=== PATIENT | female | born 1955 | race Caucasian/White ===

== ENCOUNTER → 2017-01-22 | Outpatient (CLI) | payer OTHER | LOC: CAT 14:28 | DX: Z13.6 Encounter for screening for cardiovascular disorders (principal) ==

== ENCOUNTER → 2017-09-11 | Outpatient (CLI) | payer BC | LOC: RAD 09-04 03:02 | DX: N64.4 Mastodynia (principal); R92.8 Other abnormal and inconclusive findings on diagnostic imaging of breast ==

== ENCOUNTER → 2018-10-14 | Outpatient (CLI) | payer OTHER | LOC: RAD 01:23 | DX: Z12.31 Encounter for screening mammogram for malignant neoplasm of breast (principal) ==

== ENCOUNTER 2019-08-05 17:25 | Inpatient (IN) | payer OTHER ==
[~2019-08-05] VITALS: Ht 170.2 cm; Wt 68.0 kg
--- NOTE | ~2019-08-05 | EKG ---
[facility] [place] [address] [place] [address] ELECTROCARDIOGRAM REPORT Name: ALICE TRACY Room #: 207-P ADM IN M.R.#: [id number] Admission: 08/05/19 Attend Phys: Eldon Lyons MD, Discharge: Date of : 57 Report #: [id number] THIS REPORT FOR: cc: Sonya Fontaine MD, Lisa A. MD Epiphany, Epiphany MD ~ THIS REPORT FOR: //name// [facility] Test Date: 2019-08-06 Test Time: 07:18:27 Pat Name: ALICE TRACY Department: Room: 207 P Gender: F Dialysis Registered Nurse: KENNETH : [id number] Requested By: Eldon Lyons Order Number: [id number] MD: Measurements Intervals [place] Rate: 72 P: 65 MI: 178 QRS: 54 QRSD: 97 T: 168 QT: 476 QTc: 522 Interpretive Statements Sinus rhythm Probable left atrial enlargement Borderline low voltage, extremity leads Abnrm T, consider ischemia, anterolateral lds Prolonged QT interval No previous ECG available for comparison [email or web address] By: 0718 7 Epiphany Epiphany, [place] /EPI
[2019-08-05 18:00] VITALS: BP 133/87
--- NOTE | 2019-08-05 18:23 | NUR ---
PT CARE ASSUMED APPROX 1750. PT DENIES PAIN AND SOA. VSS. UP WITH STEADY GAIT. POC INITIATED. PT DENIES QUESTIONS OR CONCERNS REGARDING POC. CXR COMPLETED. PT RESTING COMFORTABLY WITHOUT NOTED DISTRESS.
[2019-08-05 19:07] LABS: ABSOLUTE NEUTROPHILS 5.8 thou/uL (1.4-8.2); BASOPHILS 0.5 % (0.0-2.0); EOSINOPHILS 1.4 % (0.0-3.0); HEMOGLOBIN 13.8 gm/dL (12.0-15.0); LYMPHOCYTES 24.3 % (24.0-44.0); MCH 30.7 pg (26.0-34.0); MCHC 32.8 g/dL (28.0-37.0); MCV 93.5 fL (80.0-100.0); MONOCYTES 6.7 % (1.0-8.0); PLATELET COUNT 249 thou/uL (150-400); POLYS 67.1 % (36.0-66.0); RBC 4.49 mil/uL (4.20-5.00); RDW 12.8 % (10.5-14.5); WBC 8.6 thou/uL (4.0-11.0)
[2019-08-05 19:29] LABS: ALBUMIN 3.6 g/dL (3.4-5.0); CALCIUM 9.5 mg/dL (8.5-10.1); CREATININE 0.7 mg/dL (0.6-1.0); TOTAL BILIRUBIN 0.3 mg/dL (<0.1-1.0); TOTAL PROTEIN 7.2 g/dL (6.4-8.2)
[2019-08-05 19:32] LABS: TROPONIN-I 2.44 ng/mL (<0.06)
[2019-08-05 20:30] VITALS: BP 127/77
[2019-08-05 23:57] VITALS: BP 119/72
[2019-08-06] VITALS (15 sets, daily range): BP systolic 15–126; BP diastolic 45–73
--- NOTE | 2019-08-06 01:48 | NUR ---
PT WAS A NEW ADMIT ON CCU ABUT 1800. PT ALERT AND ORIENTED. WAS A DIRECT ADMIT FROM DR. BOLAÑOS OFFICE. DR BOLAÑOS ON UNIT DURING ADMISSION TIME. PT REPORTS HAVING CHEST PRESSURES WILL CLEANING HER DRIVE WAY YESTERDAY AND SIMILAR CHESAT PRESSURE DURING HER ROUTINE KICK BOX EXERCISE THE DAY BEFORE YESTERDAY. CURRENTLY PT DENIES CHEST PAIN, OR ANY PRESSURES. INDEPENDENT WITH ALL HER DAILY ACTIVITIES. ADMISSION ASSESSMENTS COMPLETE. CONSENT FOR CARDIAC CATH SIGNED YESTERDAY. PT IS NPO WITHOUT ANY OTHER CONCERNS. WILL CONTINUE TO MONITOR AND FOLLOW POC.
[2019-08-06] MEDS ORDERED: TOPROL XL25 MG PO (09:14)
[2019-08-06] MEDS ORDERED: LISINOPRIL2.5 MG PO (09:14)
--- NOTE | 2019-08-06 18:52 | NUR ---
PT CARE ASSUMED APPROXIMATELY 0700. PT ASSESSMENTS CHARTED. PT MEDICATIONS CHARTED. PT DENIES CHEST PAIN, ONLY SLIGHT DISCOMFORT AT STENT SITE.
[2019-08-06] MEDS ORDERED: ETODOLAC500 MG PO (19:10)
[2019-08-06] MEDS ORDERED: XIIDRA1 EACH OP (19:11)
[2019-08-06] MEDS ORDERED: ZOLPIDEM TARTRA10 MG PO (19:13)
[2019-08-06] MEDS ORDERED: BIOFREEZE118 ML (19:16)
--- NOTE | 2019-08-07 03:29 | NUR ---
PT S/P CARDIAC CATH WITHOUT INTERVENTION. OFF BEDREST. RIGHT GROIN C/D/I. NO C/O PAIN. DR FLOYD CALLED FOR AMBIEN ORDER. ASA DC'D PER DR BOLAÑOS'S ORDER. PT TO DC THIS AM. NO FURTHER CONCERNS.
[2019-08-07 04:01] VITALS: BP 100/58
[2019-08-07 07:34] VITALS: BP 99/48
[2019-08-07 08:35] VITALS: BP 99/48
[2019-08-07 09:04] VITALS: BP 99/48
[2019-08-07 09:15] VITALS: BP 99/48
--- NOTE | 2019-08-07 11:06 | NUR ---
PT CARE ASSUMED APPROXIMATELY 0700. PT ASSESSMENT CHARTED. PT MEDICATIONS CHARTED. PT DENIES PAIN. SPOUSE IS AT THE BEDSIDE. PT IS READY FOR DISCHARGE.
--- NOTE | 2019-08-08 12:57 | CATHLAB ---
[facility] [address] [place] [address] INVASIVE PROCEDURE REPORT Name: ALICE TRACY Room #: 207-P [facility] IN M.R.#: [id number] Admission: 08/05/19 Attend Phys: Eldon Lyons MD, Discharge: 08/07/19 Date of : 57 Report #: [id number] THIS REPORT FOR: cc: Sonya Fontaine MD, Lisa A. MD Mancuso, Gerald M. MD [facility] ~ APPROVED REPORT Study performed: 08/06/2019 07:24:41 Patient Details Patient Status: In-Patient Room #: The patient is a 63 year-old female Event Personnel Eldon Lyons Stack Attendant, Collin George RTR Monitor, Stefania Arroyo RN RN, Estelita Garcia RTR, STUDIO DIRECTOR Scrub Procedures Performed Art Access - R femoral artery* Left Heart Cath w/or w/o Coronaries [id number] [facility] Aortogram Abdominal Peripheral Angio 991675 15880 Initial Mod Sed Same Phys/QHP Gr5y 612265 81297 Mod Sed Same Phys/QHP Ea 754316 Hemostasis w/ Mynx Indication Chest pain Procedure Narrative The Right Groin^ was infiltrated with 1% Lidocaine subcutaneous anesthesia. A PINNACLE 6FR Sheath #[id number] sheath was inserted into the RFA^. Coronary angiography was performed using coronary diagnostic catheters. The right coronary system was accessed and visualized with a JR4 catheter. The left coronary system was accessed and visualized with a JL4 catheter. The left ventricle was accessed and visualized with a Pigtail catheter. Left ventriculogram was performed in 30 degree projection. An aortogram of the abdominal aorta was performed. Pre-demployment femoral angiogram was performed . Closure device was deployed with a Fr MYNXGRIP 6/7F #[id number]. The patient tolerated the procedure well and there were no complications associated with the procedure. There was no hematoma. Intraoperative Conscious Sedation Sedation start time: 7:54 Case end Time: [facility] [address] [email or web address] [address] INVASIVE PROCEDURE REPORT Name: URSZULALAURAALICE Room #: 207-P [facility] IN ..#: [id number] Admission: 08/05/19 Attend Phys: Eldon Lyons, Discharge: 08/07/19 Date of : 57 Report #: [id number] 19:19 Fentanyl 50 mcg Versed 1 mg Fluoro Time: 1.45 minutes Dose: DAP 1622.30 cGycm2 178 mGy Contrast Type and Amount: Omnipaque 55 ml Hemodynamics The aortic pressure is 139/70 mmHg with a mean of 92 mmHg. The left ventricular pressure is 125/4 mmHg with a mean of mmHg. The left ventricular end diastolic pressure is 15 mmHg. Conclusion #1 left ventricle exhibiting anterior apical inferior apical akinesis apical ballooning consistent with a Takatsubo EF 40-45% #2 abdominal aortogram revealing mildly tortuous abdominal aorta no aneurysm. Widely patent iliac system and renal arteries widely patent #3 left main free of disease giving rise to LAD and circumflex #4 LAD with no irregularities extends to the apex. No occlusive disease #5 circumflex system nondominant high rising OM/ramus branch no disease #6 large dominant right coronary artery free of disease Recommendations plan: Continue aggressive risk factor modification. We will treat for cardiomyopathy transient due to the apparent diagnosis ofTakatsubo Patient is hemodynamically stable transfer to CCU. Addition of beta nic afterload reducers <ELECTRONICALLY SIGNED> By: Eldon Lyons MD, FACC 08/08/19 1256 1256 1256 Eldon Lyons MD, FACC /INF
== END 2019-08-07 10:59 | disposition home or self-care (01) | DRG 287 ==
LOC: 2N 17:25
PROVIDERS: ADMIT Internal Medicine Cardiovascular Disease
PROC: B2111ZZ Fluoroscopy of Multiple Coronary Arteries using Low Osmolar Contrast (ICD-10-PCS; principal; 2019-08-06)
PROC: B2151ZZ Fluoroscopy of Left Heart using Low Osmolar Contrast (ICD-10-PCS; principal; 2019-08-06)
PROC: B41F1ZZ Fluoroscopy of Right Lower Extremity Arteries using Low Osmolar Contrast (ICD-10-PCS; principal; 2019-08-06)
PROC: 4A023N7 Measurement of Cardiac Sampling and Pressure, Left Heart, Percutaneous Approach (ICD-10-PCS; principal; 2019-08-06)
DX: I51.81 Takotsubo syndrome (principal); Z79.899 Other long term (current) drug therapy
CPT/HCPCS: 10081

== ENCOUNTER → 2019-08-05 | Outpatient (CLI) | payer OTHER ==
[~2019-08-05] MED LIST: BIOFREEZE118 ML; ETODOLAC500 MG PO; LISINOPRIL2.5 MG PO; TOPROL XL25 MG PO; XIIDRA1 EACH OP; ZOLPIDEM TARTRA10 MG PO
== END | disposition home or self-care (01) ==
LOC: SJCVCIMAG 16:21
DX: I36.1 Nonrheumatic tricuspid (valve) insufficiency (principal); I27.20 Pulmonary hypertension, unspecified; R53.83 Other fatigue; R94.31 Abnormal electrocardiogram [ECG] [EKG]; Z90.710 Acquired absence of both cervix and uterus; Z82.49 Family history of ischemic heart disease and other diseases of the circulatory system; Z79.82 Long term (current) use of aspirin; Z79.899 Other long term (current) drug therapy

== ENCOUNTER → 2019-08-20 | Outpatient (CLI) | payer OTHER | LOC: SJCVCIMAG 08-19 14:07 | DX: I07.1 Rheumatic tricuspid insufficiency (principal); R53.83 Other fatigue ==

== ENCOUNTER → 2019-12-14 | Outpatient (CLI) | payer OTHER | LOC: RAD 10:24 | PROVIDERS: ATTEND Family Medicine | DX: Z12.31 Encounter for screening mammogram for malignant neoplasm of breast (principal) ==

== ENCOUNTER → 2020-03-08 | Outpatient (CLI) | payer OTHER | LOC: BC 09:10 → ULTRA 10:20 | PROVIDERS: ATTEND Family Medicine | DX: N64.4 Mastodynia (principal) ==

== ENCOUNTER → 2020-06-14 | Outpatient (CLI) | payer OTHER | LOC: SJCVCIMAG 10:42 | PROVIDERS: ATTEND Internal Medicine Cardiovascular Disease | DX: I08.1 Rheumatic disorders of both mitral and tricuspid valves (principal) ==

== ENCOUNTER → 2020-07-28 | Outpatient (CLI) | payer OTHER | LOC: CAT 07-25 10:01 | PROVIDERS: ATTEND Internal Medicine Cardiovascular Disease | DX: Z13.6 Encounter for screening for cardiovascular disorders (principal); I25.10 Atherosclerotic heart disease of native coronary artery without angina pectoris; E78.00 Pure hypercholesterolemia, unspecified ==